=== PATIENT | female | born 1980 | race Caucasian/White ===

== ENCOUNTER 2022-02-06 22:57 | Emergency (ER) | payer SELFPAY | END 2022-02-06 23:10 | disposition left against medical advice (07) | LOC: MW.ED 22:57 | DX: Z53.21 Procedure and treatment not carried out due to patient leaving prior to being seen by health care provider (principal) ==

== ENCOUNTER 2022-05-16 23:14 | Emergency (ER) | payer SELFPAY | END 2022-05-17 01:11 | LOC: MW.ED 23:14 | DX: S00.03XA Contusion of scalp, initial encounter (principal); T74.91XA Unspecified adult maltreatment, confirmed, initial encounter; Y04.0XXA Assault by unarmed brawl or fight, initial encounter | CPT/HCPCS: 70450; 70450-26; 72125; 72125-26; 99283; 99284 ==

== ENCOUNTER 2023-07-01 06:27 | Emergency (ER) | payer BC ==
[2023-07-01] MEDS: Ondansetron 4 MG/2 ML SDV IVPUSH ONE ×2 (06:49→07:13)
[2023-07-01] MEDS: Tranexamic Acid 1,000 MG/10 ML Vial ONE (06:49)
[2023-07-01 06:56] LABS: BASOPHILS ABSOLUTE AUTO 0.05 K/uL (0.00-0.20); BASOPHILS PERCENT AUTO 0.5 % (0.0-1.0); EOSINOPHILS ABSOLUTE AUTO 0.21 K/uL (0.00-0.45); EOSINOPHILS PERCENT AUTO 2.1 % (0.0-6.0); HEMOGLOBIN 13.6 g/dL (12.0-16.0); IMMATURE GRAN ABSOLUTE AUTO 0.04 K/uL (0.00-0.05); IMMATURE GRAN PERCENT AUTO 0.4 % (0.0-0.4); LYMPHOCYTES ABSOLUTE AUTO 2.98 K/uL (1.00-4.80); LYMPHOCYTES PERCENT AUTO 29.4 % (24.0-44.0); MEAN CORPUSCULAR HEMOGLOBIN 30.2 pg (28.0-32.0); MEAN CORPUSCULAR HGB CONC 35.8 g/dL (32.0-36.0); MEAN CORPUSCULAR VOLUME 84.4 fL (83.0-99.0); MEAN PLATELET VOLUME 9.1 fL (9.4-12.3); MONOCYTES ABSOLUTE AUTO 0.89 K/uL (0.00-0.80); MONOCYTES PERCENT AUTO 8.8 % (0.0-8.0); NEUTROPHILS ABSOLUTE AUTO 5.97 K/uL (1.80-7.70); NEUTROPHILS PERCENT AUTO 58.8 % (41.0-71.0); PLATELET COUNT,PLT 248 K/uL (150-400); WHITE BLOOD CELL COUNT,WBC 10.14 K/uL (3.9-11.3)
== END 2023-07-01 08:06 | disposition home or self-care (01) ==
LOC: MW.ED 06:27
DX: J95.830 Postprocedural hemorrhage of a respiratory system organ or structure following a respiratory system procedure (principal); Z75.8 Other problems related to medical facilities and other health care; Z90.89 Acquired absence of other organs
CPT/HCPCS: 36415; 85025; 86850; 86900; 86901; 96374; 99283; J2405; J3490